=== PATIENT | female | born 1975 | race Caucasian/White ===

== ENCOUNTER → 2016-06-08 | Outpatient (CLI) | payer BC ==
[2014-07-13 19:45] VITALS: BP 109/78
[~2016-06-08] MED LIST: CETI10TA22 PO; ESOM20CA PO; MONT10TA9 PO
[2016-06-08 17:08] LABS: BASO % 0 % (0-3); EOS % 0 % (0-3); HEMOGLOBIN 13.5 g/dL (12.0-15.5); LYMPH # 1.1 x10^3/uL (1.0-4.8); LYMPH % 12 % (24-48); MEAN CORPUSCULAR HEMOGLOBIN 29 pg (25-35); MEAN CORPUSCULAR HGB CONC 33 g/dL (31-37); MEAN CORPUSCULAR VOLUME 87 fL (79-100); MONO % 2 % (0-9); NEUT % 86 % (31-73); PLATELET COUNT 216 x10^3/uL (140-400); RED BLOOD COUNT 4.73 x10^6/uL (3.50-5.40); WHITE BLOOD COUNT 9.3 x10^3/uL (4.0-11.0)
[2016-06-08 17:38] LABS: ALBUMIN/GLOBULIN RATIO 0.9 (1.0-1.7); CALCIUM 9.1 mg/dL (8.5-10.1); CREATININE 0.8 mg/dL (0.6-1.0); GFR 79.9; POTASSIUM 3.6 mmol/L (3.5-5.1); TOTAL BILIRUBIN 0.6 mg/dL (0.2-1.0); TOTAL PROTEIN 8.3 g/dL (6.4-8.2)
[2016-06-08 19:56] LABS: PLT ESTIMATE ADEQUATE (ADEQUATE)
[2016-06-08 20:01] LABS: BILIRUBIN,URINE NEGATIVE (NEG); GLUCOSE,URINE NEGATIVE (NEG); NITRITE,URINE NEGATIVE (NEG); PH,URINE 7.5; PROTEIN,URINE NEGATIVE (NEG-TRACE); UROBILINOGEN,URINE 0.2 mg/dL (0.2 mg/dL)
[2016-06-08 20:13] LABS: BACTERIA,URINE 0 /HPF (0-FEW); RBC,URINE 0 /HPF (0-2); SQUAMOUS EPITHELIAL CELL,UR OCC /LPF; WBC,URINE 0 /HPF (0-4)
== END | disposition home or self-care (01) ==
LOC: LAB 16:43
PROVIDERS: ATTEND Family Medicine
DX: R53.83 Other fatigue (principal)
CPT/HCPCS: 36415; 80053; 81001; 85007; 85027

== ENCOUNTER 2016-06-14 10:18 | Emergency (ER) | payer BC ==
[~2016-06-14] VITALS: Ht 170.2 cm; Wt 64.9 kg
[2016-06-14 10:30] VITALS: BP 120/81
[2016-06-14] MEDS ORDERED: IV NORMAL SALINE 1000ML BAG 1,000 ML IV ONE (10:45)
--- NOTE | 2016-06-14 11:05 | RAD ---
Portable chest, 06/14/2016: History: Fever, shortness of breath, cough The heart size and pulmonary vascularity are normal. The lungs are clear. There is no evidence of pleural fluid. IMPRESSION: No acute cardiopulmonary abnormality is detected.
--- NOTE | 2016-06-14 11:31 | EKG ---
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
[2016-06-14 11:35] LABS: BILIRUBIN,URINE NEGATIVE (NEG); GLUCOSE,URINE NEGATIVE (NEG); NITRITE,URINE NEGATIVE (NEG); PH,URINE 7.5; PROTEIN,URINE NEGATIVE (NEG-TRACE); UROBILINOGEN,URINE 0.2 mg/dL (0.2 mg/dL)
[2016-06-14 11:37] LABS: BASO % 0 % (0-3); EOS % 2 % (0-3); HEMATOCRIT 43.4 % (36.0-47.0); HEMOGLOBIN 14.1 g/dL (12.0-15.5); LYMPH # 2.4 x10^3/uL (1.0-4.8); LYMPH % 22 % (24-48); MEAN CORPUSCULAR HEMOGLOBIN 29 pg (25-35); MEAN CORPUSCULAR HGB CONC 33 g/dL (31-37); MEAN CORPUSCULAR VOLUME 88 fL (79-100); MONO % 6 % (0-9); NEUT % 70 % (31-73); PLATELET COUNT 219 x10^3/uL (140-400); RED BLOOD COUNT 4.95 x10^6/uL (3.50-5.40); RED CELL DISTRIBUTION WIDTH 12.8 % (11.5-14.5)
[2016-06-14 11:45] LABS: BACTERIA,URINE FEW /HPF (0-FEW); RBC,URINE RARE /HPF (0-2); SQUAMOUS EPITHELIAL CELL,UR FEW /LPF; WBC,URINE RARE /HPF (0-4)
[2016-06-14 11:46] LABS: CALCIUM 9.4 mg/dL (8.5-10.1); CREATININE 0.7 mg/dL (0.6-1.0); GFR 93.2; MAGNESIUM 2.1 mg/dL (1.8-2.4); POTASSIUM 3.9 mmol/L (3.5-5.1)
[2016-06-14 11:49] LABS: NEGATIVE OBC MONO NEG; POSITIVE OBC MONO POS
--- NOTE | 2016-06-14 11:49 | PHYS DOC ---
Past Medical History Past Medical History: Asthma, Hypotension, Ovarian Cyst, UTI Past Surgical History: Appendectomy, Other Additional Past Surgical Histo: BREAST LUMP REMOVAL Alcohol Use: Occasionally Drug Use: None Adult General Chief Complaint Chief Complaint: FEVER HPI HPI Patient is a 40 year old female with history of asthma and hypertension who presents today with multiple complaints. Patient states for the last 5 weeks she 's had symptoms of upper respiratory infection including body aches, fever, coughing. She states she was seen by her PCP 4 weeks ago of her symptoms and was told she probably has the flu. Patient states a couple days later her symptoms are going on. She states she was given a prescription for Levaquin. She states while taking the Levaquin she was informed she could have strep because her daughter had strep. She states continued taking the Levaquin for couple more days then stopped. Patient states she saw the PCP last week and was also put on steroids. She states the steroids helped with her symptoms but she still feeling weak and tired. She states she is still coughing and congested. She states she's also had intermittent fevers. She is currently taking codeine with promethazine. PCP at [facility]. Review of Systems Review of Systems Constitutional: Body aches and fevers Eyes: Denies change in visual acuity, redness, or eye pain [] HENT: nasal congestion Respiratory: cough Cardiovascular: No additional information not addressed in HPI [] GI: Denies abdominal pain, nausea, vomiting, bloody stools or diarrhea [] : Denies dysuria or hematuria [] Musculoskeletal: Denies back pain or joint pain [] Integument: Denies rash or skin lesions [] Neurologic: Denies headache, focal weakness or sensory changes [] Endocrine: Denies polyuria or polydipsia [] Current Medications Current Medications Current Medications Medications (Trade) Dose Ordered Sig/Konstantin Start Time Stop Time Status Last Admin Dose Admin Sodium Chloride (Iv Sodium Chloride 0.9% 1000ml Bag) 1,000 ml @ 1,000 mls/hr 1X ONCE 06/14/16 10:45 06/14/16 11:44 DC 06/14/16 11:17 1,000 MLS/HR Allergies Allergies Allergies Coded Allergies Type Severity Reaction Last Updated Verified copper Allergy Intermediate Rash 07/12/14 Yes minocycline Allergy Mild Itching 07/12/14 No amoxicillin Adverse Reaction Mild INEFFECTIVE 07/12/14 Yes Physical Exam Physical Exam Constitutional: Well developed, well nourished, no acute distress, non-toxic appearance. [] HENT: Normocephalic, atraumatic, bilateral external ears normal, oropharynx moist, no oral exudates, nose normal. [] Eyes: PERRLA, EOMI, conjunctiva normal, no discharge. [] Neck: Normal range of motion, no tenderness, supple, no stridor. [] Cardiovascular:Heart rate regular rhythm, no murmur [] Lungs & Thorax: Bilateral breath sounds clear to auscultation [] Abdomen: Bowel sounds normal, soft, no tenderness, no masses, no pulsatile masses. [] Skin: Warm, dry, no erythema, no rash. [] Back: No tenderness, no CVA tenderness. [] Extremities: No tenderness, no cyanosis, no clubbing, ROM intact, no edema. [] Neurologic: Alert and oriented X 3, normal motor function, normal sensory function, no focal deficits noted. [] Psychologic: Affect normal, judgement normal, mood normal. [] Current Patient Data Vital Signs Vital Signs Date Time Temp Pulse Resp B/P Pulse Ox O2 Delivery O2 Flow Rate FiO2 06/14/16 10:30 98.6 96 21 100 Room Air 98.6 Lab Values Laboratory Tests Test 06/14/16 11:05 06/14/16 11:15 06/14/16 11:25 06/14/16 11:30 Urine Collection Type Void Urine Color Colorless Urine Clarity Clear Urine pH 7.5 Urine Specific [place] <=1.005 Urine Protein Negativemg/dL (NEG-TRACE) Urine Glucose (UA) Negativemg/dL (NEG) Urine Ketones (Stick) Negativemg/dL (NEG) Urine Blood Negative (NEG) Urine Nitrite Negative (NEG) Urine Bilirubin Negative (NEG) Urine Urobilinogen Dipstick 0.2mg/dL (0.2 mg/dL) Urine Leukocyte Esterase Negative (NEG) Urine RBC Rare/HPF (0-2) Urine WBC Rare/HPF (0-4) Urine Squamous Epithelial Cells Few/LPF Urine Bacteria Few/HPF (0-FEW) Influenza Type A Antigen Negative (NEGATIVE) Influenza Type B Antigen Negative (NEGATIVE) White Blood Count 11.0x10^3/uL (4.0-11.0) Red Blood Count 4.95x10^6/uL (3.50-5.40) Hemoglobin 14.1g/dL (12.0-15.5) Hematocrit 43.4% (36.0-47.0) Mean Corpuscular Volume 88fL (79-100) Mean Corpuscular Hemoglobin 29pg (25-35) Mean Corpuscular Hemoglobin Concent 33g/dL (31-37) Red Cell Distribution Width 12.8% (11.5-14.5) Platelet Count 219x10^3/uL (140-400) Neutrophils (%) (Auto) 70% (31-73) Lymphocytes (%) (Auto) 22% (24-48) L Monocytes (%) (Auto) 6% (0-9) Eosinophils (%) (Auto) 2% (0-3) Basophils (%) (Auto) 0% (0-3) Neutrophils # (Auto) 7.7x10^3uL (1.8-7.7) Lymphocytes # (Auto) 2.4x10^3/uL (1.0-4.8) Monocytes # (Auto) 0.6x10^3/uL (0.0-1.1) Eosinophils # (Auto) 0.2x10^3/uL (0.0-0.7) Basophils # (Auto) 0.0x10^3/uL (0.0-0.2) Prothrombin Time 13.1SEC (11.7-14.0) Prothrombin Time INR 1.1 (0.8-1.1) D-Dimer (Dorie) 0.40ug/mlFEU (0.00-0.50) Sodium Level 141mmol/L (136-145) Potassium Level 3.9mmol/L (3.5-5.1) Chloride Level 103mmol/L (98-107) Carbon Dioxide Level 29mmol/L (21-32) Anion Gap 9 (6-14) Blood Urea Nitrogen 11mg/dL (7-20) Creatinine 0.7mg/dL (0.6-1.0) Estimated GFR (Cockcroft-Gault) 93.2 Glucose Level 88mg/dL (70-99) Calcium Level 9.4mg/dL (8.5-10.1) Magnesium Level 2.1mg/dL (1.8-2.4) Creatine Kinase 36U/L (26-192) Creatine Kinase MB (Mass) < 0.5ng/mL (0.0-3.6) Creatine Kinase MB Relative Index % (0-4) Troponin I Quantitative < 0.017ng/mL (0.000-0.055) Heterophil Agglutinins Negative (NEGATIVE) Group A Streptococcus Rapid Negative (NEGATIVE) POC Urine HCG, Qualitative Hcg negative (Negative) Laboratory Tests 06/14/16 11:15 Laboratory Tests 06/14/16 11:15 EKG EKG [] Radiology/Procedures Radiology/Procedures [] Course & Med Decision Making Course & Med Decision Making Pertinent Labs and Imaging studies reviewed. (See chart for details) This is a well-appearing patient who presents today with multiple complaints that have been going on intermittently for 5 weeks including body aches chills fevers and a cough. 11:[address] Vaca sinus rhythm, normal axis, QRS interval 80, heart rate 70 no STEMI. Chest x-ray interpreted by radiologist as negative for any acute findings. CBC BMP troponin d-dimer with no acute findings. Negative influenza A or B. Negative rapid strep. Patient's vitals are normal. I believe her symptoms are viral. She was discharged with instructions to follow -up with her PCP in the course of this week or next week. She was provided return precautions and discharged in stable condition. Dragon Disclaimer Dragon Disclaimer This electronic medical record was generated, in whole or in part, using a voice recognition dictation system. Departure Departure Impression: Primary Impression: Fever Additional Impressions: Viral illness Cough Disposition: HOME, SELF-CARE Condition: STABLE Referrals: YUAN ORDONEZ (PCP) Follow-up with your own doctor in the next one to 7 days. Patient Instructions: Cough, Adult, Fever Additional Instructions: You were seen for symptoms consistent with a viral illness. Follow-up with your doctor in the next one to 7 days. Come to the ED for any worsening symptoms or any concerns. Problem Qualifiers Primary Impression: Fever Fever type: unspecified Qualified Code: R50.9 - Fever, unspecified KIRILL SEGOVIA CHERELLE Jun 14, 2016 11:49
[2016-06-14 11:51] LABS: NEGATIVE OBC STREP NEG; POSITIVE OBC STREP POS
[2016-06-14 11:59] LABS: OBC FLU VALID
[2016-06-14 12:05] LABS: INR 1.1 (0.8-1.1); PROTHROMBIN TIME PATIENT 13.1 SEC (11.7-14.0)
[2016-06-14 12:11] LABS: CKMB MASS < 0.5 ng/mL (0.0-3.6); CREATINE KINASE 36 U/L (26-192)
== END 2016-06-14 13:20 | disposition home or self-care (01) ==
LOC: ER 10:18
DX: R50.9 Fever, unspecified (principal); B34.9 Viral infection, unspecified; R05 Cough; J45.909 Unspecified asthma, uncomplicated; I10 Essential (primary) hypertension; I95.9 Hypotension, unspecified; Z91.048 Other nonmedicinal substance allergy status; Z88.1 Allergy status to other antibiotic agents
CPT/HCPCS: 36415; 71010; 80048; 81001; 81025; 82553; 83735; 84484; 85027; 85379; 85610; 86308; 87070; 87804; 87880; 93005; 96360; 99285; J7030

== ENCOUNTER 2016-06-21 17:01 | Emergency (ER) | payer BC ==
[~2016-06-21] VITALS: Ht 170.2 cm; Wt 63.5 kg
[2016-06-21 18:00] LABS: BILIRUBIN,URINE NEGATIVE (NEG); GLUCOSE,URINE NEGATIVE (NEG); NITRITE,URINE NEGATIVE (NEG); PH,URINE 6.5; PROTEIN,URINE NEGATIVE (NEG-TRACE); UROBILINOGEN,URINE 0.2 mg/dL (0.2 mg/dL)
[2016-06-21] MEDS ORDERED: IV NORMAL SALINE 1000ML BAG 1,000 ML IV SCH (18:02)
[2016-06-21 18:12] LABS: BACTERIA,URINE 0 /HPF (0-FEW); RBC,URINE OCC /HPF (0-2); SQUAMOUS EPITHELIAL CELL,UR FEW /LPF
[2016-06-21 18:37] LABS: BASO % 0 % (0-3); EOS % 0 % (0-3); LYMPH # 0.8 x10^3/uL (1.0-4.8); LYMPH % 7 % (24-48); MEAN CORPUSCULAR HEMOGLOBIN 28 pg (25-35); MEAN CORPUSCULAR HGB CONC 33 g/dL (31-37); MEAN CORPUSCULAR VOLUME 87 fL (79-100); MONO % 1 % (0-9); NEUT % 92 % (31-73); PLATELET COUNT 218 x10^3/uL (140-400); RED BLOOD COUNT 4.59 x10^6/uL (3.50-5.40); RED CELL DISTRIBUTION WIDTH 13.5 % (11.5-14.5); WHITE BLOOD COUNT 11.8 x10^3/uL (4.0-11.0)
[2016-06-21 18:55] LABS: CALCIUM 9.2 mg/dL (8.5-10.1); CREATININE 0.8 mg/dL (0.6-1.0); GFR 79.9; POTASSIUM 3.6 mmol/L (3.5-5.1)
[2016-06-21 19:06] LABS: FREE T4 1.01 ng/dL (0.76-1.46)
[2016-06-21 19:08] LABS: NEGATIVE OBC MONO NEG; POSITIVE OBC MONO POS
--- NOTE | 2016-06-21 19:08 | PHYS DOC ---
Past Medical History Past Medical History: Asthma, Hypotension, Ovarian Cyst, UTI Past Surgical History: Appendectomy, Hysterectomy, Other Additional Past Surgical Histo: BREAST LUMP REMOVAL Alcohol Use: None Drug Use: None Adult General Chief Complaint Chief Complaint: WEAKNESS/GENERALIZED HPI HPI Patient is a 40 year old female who presents with 3 weeks of fatigue, decreased appetite, poor oral intake, weight loss, weight and intermittent rhinorrhea and chills. She states she has been seen at emergency departments and her primary care doctor prior and told that she has a viral illness each time. She states she has had a chest x-ray, blood work, and other workup that are all "normal". Initially, she had symptoms similar to her family. Her family has gotten well, but she is not. She denies emesis, diarrhea, dysuria, measured fever, chest pain. Review of Systems Review of Systems Constitutional: Denies fever or chills [] Eyes: Denies change in visual acuity, redness, or eye pain [] HENT: Denies nasal congestion or sore throat [] Respiratory: Denies cough or shortness of breath [] Cardiovascular: No additional information not addressed in HPI [] GI: Denies abdominal pain, nausea, vomiting, bloody stools or diarrhea [] : Denies dysuria or hematuria [] Musculoskeletal: Denies back pain or joint pain [] Integument: Denies rash or skin lesions [] Neurologic: Denies headache, focal weakness or sensory changes [] Endocrine: Denies polyuria or polydipsia [] Current Medications Current Medications Current Medications Medications (Trade) Dose Ordered Sig/Konstantin Start Time Stop Time Status Last Admin Dose Admin Sodium Chloride (Iv Sodium Chloride 0.9% 1000ml Bag) 1,000 ml @ 1,000 mls/hr Q1H 06/21/16 18:02 06/21/16 19:01 DC 06/21/16 18:32 1,000 MLS/HR Allergies Allergies Allergies Coded Allergies Type Severity Reaction Last Updated Verified copper Allergy Intermediate Rash 07/12/14 Yes minocycline Allergy Mild Itching 07/12/14 No amoxicillin Adverse Reaction Mild INEFFECTIVE 07/12/14 Yes Physical Exam Physical Exam Constitutional: Well developed, well nourished, no acute distress, non-toxic appearance. [] HENT: Normocephalic, atraumatic, bilateral external ears normal, oropharynx moist, no oral exudates, nose normal. [] Eyes: PERRLA, EOMI, conjunctiva normal, no discharge. [] Neck: Normal range of motion, no tenderness, supple. [] Cardiovascular:Heart rate regular rhythm [] Lungs & Thorax: Bilateral breath sounds clear to auscultation [] Abdomen: Bowel sounds normal, soft, no tenderness. [] Skin: Warm, dry, no erythema, no rash. [] Back: No tenderness, no CVA tenderness. [] Extremities: No tenderness, ROM intact, no edema. [] Neurologic: Alert and oriented X 3, normal motor function, normal sensory function, no focal deficits noted. [] Psychologic: Affect normal, judgement normal, mood normal. [] Current Patient Data Vital Signs Vital Signs Date Time Temp Pulse Resp B/P Pulse Ox O2 Delivery O2 Flow Rate FiO2 06/21/16 19:30 94 20 113/80 98 Room Air 06/21/16 17:22 98.5 98.5 Lab Values Laboratory Tests Test 06/21/16 17:10 06/21/16 18:25 Urine Collection Type Unknown Urine Color Yellow Urine Clarity Clear Urine pH 6.5 Urine Specific [place] 1.010 Urine Protein Negativemg/dL (NEG-TRACE) Urine Glucose (UA) Negativemg/dL (NEG) Urine Ketones (Stick) Negativemg/dL (NEG) Urine Blood Negative (NEG) Urine Nitrite Negative (NEG) Urine Bilirubin Negative (NEG) Urine Urobilinogen Dipstick 0.2mg/dL (0.2 mg/dL) Urine Leukocyte Esterase Negative (NEG) Urine RBC Occ/HPF (0-2) Urine WBC 1-4/HPF (0-4) Urine Squamous Epithelial Cells Few/LPF Urine Bacteria 0/HPF (0-FEW) Urine Mucus Slight/LPF White Blood Count 11.8x10^3/uL (4.0-11.0) H Red Blood Count 4.59x10^6/uL (3.50-5.40) Hemoglobin 13.0g/dL (12.0-15.5) Hematocrit 40.0% (36.0-47.0) Mean Corpuscular Volume 87fL (79-100) Mean Corpuscular Hemoglobin 28pg (25-35) Mean Corpuscular Hemoglobin Concent 33g/dL (31-37) Red Cell Distribution Width 13.5% (11.5-14.5) Platelet Count 218x10^3/uL (140-400) Neutrophils (%) (Auto) 92% (31-73) H Lymphocytes (%) (Auto) 7% (24-48) L Monocytes (%) (Auto) 1% (0-9) Eosinophils (%) (Auto) 0% (0-3) Basophils (%) (Auto) 0% (0-3) Neutrophils # (Auto) 10.8x10^3uL (1.8-7.7) H Lymphocytes # (Auto) 0.8x10^3/uL (1.0-4.8) L Monocytes # (Auto) 0.1x10^3/uL (0.0-1.1) Eosinophils # (Auto) 0.0x10^3/uL (0.0-0.7) Basophils # (Auto) 0.0x10^3/uL (0.0-0.2) Segmented Neutrophils % 92% (35-66) H Lymphocytes % 7% (24-48) L Monocytes % 1% (0-10) Platelet Estimate Adequate (ADEQUATE) Platelet Clumps, EDTA Present Tear Drop Cells Occ Ovalocytes Occ Sodium Level 143mmol/L (136-145) Potassium Level 3.6mmol/L (3.5-5.1) Chloride Level 105mmol/L (98-107) Carbon Dioxide Level 25mmol/L (21-32) Anion Gap 13 (6-14) Blood Urea Nitrogen 11mg/dL (7-20) Creatinine 0.8mg/dL (0.6-1.0) Estimated GFR (Cockcroft-Gault) 79.9 Glucose Level 140mg/dL (70-99) H Calcium Level 9.2mg/dL (8.5-10.1) Thyroid Stimulating Hormone (TSH) 0.381uIU/mL (0.358-3.74) Free Thyroxine 1.01ng/dL (0.76-1.46) Heterophil Agglutinins Negative (NEGATIVE) Laboratory Tests 06/21/16 18:25 Laboratory Tests 06/21/16 18:25 EKG EKG EKG as interpreted by me as normal sinus rhythm, rate 65, no ST-T changes, normal intervals, no ectopy Course & Med Decision Making Course & Med Decision Making Pertinent Labs and Imaging studies reviewed. (See chart for details) Workup is unremarkable. Discussed she should follow-up with primary care doctor for further testing. Discussed symptomatic care. Return precautions given. She understands and agrees with plan. Dragon Disclaimer Dragon Disclaimer This electronic medical record was generated, in whole or in part, using a voice recognition dictation system. Departure Departure Impression: Primary Impression: Fatigue Disposition: HOME, SELF-CARE Condition: STABLE Referrals: YUAN RODONEZ (PCP) Patient Instructions: Fatigue Additional Instructions: Follow-up with your primary care doctor. Return for any concerns. Problem Qualifiers Primary Impression: Fatigue Fatigue type: unspecified Qualified Code: R53.83 - Other fatigue Alberto CORCORAN MD Jun 21, 2016 19:08
[2016-06-21 19:19] LABS: OVALOCYTES OCC; PLT ESTIMATE ADEQUATE (ADEQUATE)
[2016-06-21 19:20] LABS: TEAR DROP CELLS OCC
[2016-06-21 19:30] VITALS: BP 113/80
--- NOTE | 2016-06-22 06:34 | EKG ---
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
== END 2016-06-21 19:30 | disposition home or self-care (01) ==
LOC: ER 17:01
DX: R53.83 Other fatigue (principal); R63.4 Abnormal weight loss; J34.89 Other specified disorders of nose and nasal sinuses; R68.83 Chills (without fever); J45.909 Unspecified asthma, uncomplicated; I95.9 Hypotension, unspecified; Z90.710 Acquired absence of both cervix and uterus; Z90.49 Acquired absence of other specified parts of digestive tract; Z87.440 Personal history of urinary (tract) infections; Z91.048 Other nonmedicinal substance allergy status; Z88.1 Allergy status to other antibiotic agents
CPT/HCPCS: 36415; 80048; 81001; 81025; 84439; 84443; 85007; 85027; 86308; 93005; 96360; 99285; J7030

== ENCOUNTER 2016-07-07 15:00 | Emergency (ER) | payer BC ==
[~2016-07-07] VITALS: Ht 170.2 cm; Wt 63.5 kg
[2016-07-07 15:05] VITALS: BP 121/85
[2016-07-07] MEDS ORDERED: PROAIR HFA8.5 GM INH (16:18)
--- NOTE | 2016-07-07 16:18 | PHYS DOC ---
Past Medical History Past Medical History: Asthma, Hypotension, Ovarian Cyst, UTI Past Surgical History: Appendectomy, Hysterectomy, Other Additional Past Surgical Histo: BREAST LUMP REMOVAL Alcohol Use: None Drug Use: None Adult General Chief Complaint Chief Complaint: SHORTNESS OF BREATH HPI HPI 40-year-old female presenting to the emergency department today with shortness of breath that is been chronic in nature proximally 4 months in duration. She reports having a mild cough being on multiple doses of antibiotics with steroids with mild improvement. She has been worked up for pulmonary embolism as well. She had a negative CTA of the chest. She has continued cough and shortness of breath. Onset months. Location lungs. Duration intermittent. No alleviating factors present. Review of systems is negative for chest pain abdominal pain nausea vomiting diaphoresis fevers chills. All other review of systems is negative unless otherwise noted in history of present illness. Review of Systems Review of Systems SEE ABOVE. Allergies Allergies Allergies Coded Allergies Type Severity Reaction Last Updated Verified copper Allergy Intermediate Rash 07/12/14 Yes minocycline Allergy Mild Itching 07/12/14 No amoxicillin Adverse Reaction Mild INEFFECTIVE 07/12/14 Yes Physical Exam Physical Exam Constitutional: Well developed, well nourished, no acute distress, non-toxic appearance. [] HENT: Normocephalic, atraumatic, bilateral external ears normal, oropharynx moist, no oral exudates, nose normal. Eyes: PERRLA, EOMI, conjunctiva normal, no discharge. [] Neck: Normal range of motion, no tenderness, supple, no stridor. Cardiovascular:Heart rate regular rhythm, no murmur Lungs & Thorax: Lungs are clear to auscultation bilaterally. No wheezing. No crackles. Not in respiratory distress. Breathing probably in the exam room without difficulty. Abdomen: Bowel sounds normal, soft, no tenderness, no masses, no pulsatile masses. Skin: Warm, dry, no erythema, no rash. [] Back: No tenderness, no CVA tenderness. Extremities: No tenderness, no cyanosis, no clubbing, ROM intact, no edema. Neurologic: Alert and oriented X 3, normal motor function, normal sensory function, no focal deficits noted. [] Psychologic: Affect normal, judgement normal, mood normal. Current Patient Data Vital Signs Vital Signs Date Time Temp Pulse Resp B/P Pulse Ox O2 Delivery O2 Flow Rate FiO2 07/07/16 15:05 97.8 77 20 121/85 100 Room Air 97.8 EKG EKG [] Radiology/Procedures Radiology/Procedures Chest x-ray reviewed by myself shows no obvious infiltrate or pneumothorax present. No obvious acute cardiopulmonary process present.[] Course & Med Decision Making Course & Med Decision Making Pertinent Labs and Imaging studies reviewed. (See chart for details) [] 40-year-old female with chronic shortness of breath. Vital signs afebrile. Regular heart rate. Pertinent physical exam shows clear lungs auscultation. Patient is breathing comfortably in the exam room. wheezing or crackles on auscultation. Chest x-ray obtained which was unremarkable. EKG unremarkable. Patient was given albuterol to follow up with PCP over the next 2-3 days if her symptoms continued. Dragon Disclaimer Dragon Disclaimer This electronic medical record was generated, in whole or in part, using a voice recognition dictation system. Departure Departure Impression: Primary Impression: SOB (shortness of breath) Disposition: HOME, SELF-CARE Condition: STABLE Referrals: YUAN ORDONEZ (PCP) Patient Instructions: Shortness of Breath Additional Instructions: Thank you for allowing us to participate in your care today. Followup with your primary care physician in 3 days if your symptoms do not improve. If you do not have a primary care provider you can ask for a list of our primary care providers. Return to the emergency department you have any new or concerning findings. This should be evaluated by the primary care physician and any necessary consulting services for continued management within a few days after discharge. Return to emergency room if you have any new or concerning symptoms including but not limited to fever, chills, nausea, vomiting, intractable pain, any new rashes, chest pain, shortness of air, uncontrolled bleeding, difficulty breathing, and/or vision loss. Scripts Albuterol Sulfate (Proair Hfa Inhaler)8.5 Gm [id number] Puff INH PRN Q6HRS PRN SHORTNESS OF BREATH #1 INHALER Prov:DELANO HENDRICKSON MD 07/07/16 DELANO HENDRICKSON MD Jul 07, 2016 16:18
--- NOTE | 2016-07-07 16:47 | RAD ---
Indication shortness of breath for 2 weeks. PA and lateral views of the chest were obtained and are compared to an examination 06/14/2016. The heart and pulmonary vessels appear normal. The lungs are clear. There has not been a significant change relative to the previous exam. IMPRESSION: No acute or significant finding in the chest. No significant change
--- NOTE | 2016-07-08 11:25 | EKG ---
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
== END 2016-07-07 17:00 | disposition home or self-care (01) ==
LOC: ER 15:00
DX: R06.02 Shortness of breath (principal); J45.909 Unspecified asthma, uncomplicated; Z88.0 Allergy status to penicillin; Z88.1 Allergy status to other antibiotic agents; Z91.048 Other nonmedicinal substance allergy status
CPT/HCPCS: 71020; 93005; 99284-25